=== PATIENT | female | born 1985 | race African-American/Black ===

== ENCOUNTER 2016-11-11 19:07 | Emergency (ER) | payer MEDICAID, OTHER ==
[~2016-11-11] VITALS: Ht 154.9 cm; Wt 68.0 kg
[2016-11-11 19:15] VITALS: BP 139/77
== END 2016-11-11 22:00 | disposition home or self-care (01) ==
LOC: ER 19:14
DX: R51 Headache (principal); M79.1 Myalgia; V49.9XXA Car occupant (driver) (passenger) injured in unspecified traffic accident, initial encounter; Y93.89 Activity, other specified; Y92.89 Other specified places as the place of occurrence of the external cause; Y99.8 Other external cause status
CPT/HCPCS: 70450; 81025

== ENCOUNTER 2017-10-30 13:32 | Emergency (ER) | payer OTHER ==
[~2017-10-30] VITALS: Ht 154.9 cm; Wt 72.6 kg
[2017-10-30 15:30] LABS: Basophils # (auto) 0 uL; Basophils % (auto) 0.3 % (0.0-2.0); Eosinophils # (auto) 0 uL; Eosinophils % (auto) 0.1 % (0.0-7.0); Hematocrit 42.9 % (36.0-46.0); Lymphocytes # (auto) 2.3 uL; Lymphocytes % (auto) 13.7 % (10.0-50.0); Mean Corpuscular Hemoglobin 31.3 pg (28.0-32.0); Mean Corpuscular Volume 89.2 fL (80.0-100.0); Monocytes # (auto) 0.9 uL; Monocytes % (auto) 5.6 % (0.0-12.0); Neutrophils # (auto) 13.6 uL; Neutrophils % (auto) 80.3 % (37.0-80.0); Nucleated Red Blood Cells % 0.1 %; Platelet Count (auto) 301 10^3/uL (140-450); Red Blood Cells 4.81 10^6/uL (4.0-5.20); Red Cell Distribution Width 12.5 % (11.8-14.3)
[2017-10-30 15:48] LABS: Albumin 4.1 g/dL (3.4-5.0); BUN/Creatinine Ratio 11.5; Bilirubin, Total 0.5 mg/dL (0.2-1.0); Potassium 3.5 mmol/L (3.5-5.1); Total Protein 8.3 g/dL (6.4-8.2)
[2017-10-30 18:57] LABS: Urine Bacteria NONE SEEN /hpf (None Seen); Urine Blood Negative /uL (Negative); Urine Mucus FEW (None Seen); Urine Specific Gravity 1.038 (1.001-1.035); Urine WBC 4 /hpf (0 - 5)
[2017-10-30] MEDS ORDERED: SODIUM CHLORIDE 0.9% 1,000 ML IV ONE ×3 (19:00→22:15)
[2017-10-30 19:11] LABS: Amphetamine Screen, Urine NEGATIVE (NEGATIVE); Barbiturate Scree,Urine NEGATIVE (NEGATIVE); Benzodiazephine Screen, Urine NEGATIVE (NEGATIVE); Cannabinoid Screen, Urine POSITIVE (NEGATIVE); Cocaine Screen, Urine NEGATIVE (NEGATIVE); Opiate Scree,Urine NEGATIVE (NEGATIVE); Phencyclidine Screen, Urine NEGATIVE (NEGATIVE)
[2017-10-30] MEDS ORDERED: PROMETHAZINE HCL 25 MG/ML 1ML IV ONE (20:30)
[2017-10-30 23:59] VITALS: BP 149/68
== END 2017-10-31 00:19 | disposition home or self-care (01) ==
LOC: ER 13:41
DX: O21.0 Mild hyperemesis gravidarum (principal); O26.891 Other specified pregnancy related conditions, first trimester; M54.9 Dorsalgia, unspecified; E86.0 Dehydration; R00.1 Bradycardia, unspecified; F19.10 Other psychoactive substance abuse, uncomplicated; Z3A.01 Less than 8 weeks gestation of pregnancy
CPT/HCPCS: 36415; 76801; 80053; 80307; 81001; 82962; 84702; 85025; 93005; 96361; 96374; 99285; J2550; J7030; 76817

== ENCOUNTER 2019-04-13 16:35 | Emergency (ER) | payer OTHER ==
[~2019-04-13] VITALS: Ht 162.6 cm; Wt 72.6 kg
[2019-04-13 17:08] VITALS: BP 124/69
== END 2019-04-13 20:01 | disposition home or self-care (01) ==
LOC: ER 16:43
DX: S43.402A Unspecified sprain of left shoulder joint, initial encounter (principal); X50.0XXA Overexertion from strenuous movement or load, initial encounter; Y93.89 Activity, other specified; Y92.59 Other trade areas as the place of occurrence of the external cause; Y99.8 Other external cause status
CPT/HCPCS: 73030

== ENCOUNTER 2019-04-21 15:37 | Emergency (ER) | payer OTHER ==
[~2019-04-21] VITALS: Ht 154.9 cm; Wt 72.6 kg
[2019-04-21 16:30] VITALS: BP 105/51
[2019-04-21] MEDS ORDERED: IBUPROFEN 600 MG TAB PO ONE (16:45)
== END 2019-04-21 17:28 | disposition home or self-care (01) ==
LOC: ER 15:37
DX: S46.912A Strain of unspecified muscle, fascia and tendon at shoulder and upper arm level, left arm, initial encounter (principal); Z98.51 Tubal ligation status; X50.0XXA Overexertion from strenuous movement or load, initial encounter; Y93.89 Activity, other specified; Y92.89 Other specified places as the place of occurrence of the external cause; Y99.8 Other external cause status
CPT/HCPCS: 73030

== ENCOUNTER 2022-02-05 23:02 | Emergency (ER) | payer OTHER ==
[~2022-02-05] VITALS: Ht 162.6 cm; Wt 81.2 kg
[2022-02-06] MEDS ORDERED: AMOX875T3 PO (00:11)
[2022-02-06] MEDS ORDERED: AMOX-277 PO (00:13)
[2022-02-06 00:27] VITALS: BP 116/60
== END 2022-02-06 00:51 | disposition home or self-care (01) ==
LOC: ER 23:02
DX: K04.7 Periapical abscess without sinus (principal); Z98.51 Tubal ligation status

== ENCOUNTER 2022-06-21 08:30 | Inpatient (IN) | payer OTHER ==
[~2022-06-21] VITALS: Ht 154.9 cm; Wt 92.5 kg
[~2022-06-21 08:30] MED LIST: AMOX-277 PO
[2022-06-21 09:19] LABS: Basophils # (auto) 0 10 ^3/uL (0-0.2); Basophils % (auto) 0.7 % (0.0-2.0); Eosinophils # (auto) 0.1 10 ^3/uL (0-0.8); Eosinophils % (auto) 1.9 % (0.0-7.0); Hemoglobin 13.5 g/dL (12.2-16.2); Lymphocytes # (auto) 2.1 10 ^3/uL (0.4-5.4); Lymphocytes % (auto) 31.1 % (10.0-50.0); Mean Corpuscular Hemoglobin 31.2 pg (28.0-32.0); Mean Corpuscular Hgb Conc. 33.7 g/dL (32.0-36.0); Mean Corpuscular Volume 92.5 fL (80.0-100.0); Monocytes # (auto) 0.5 10 ^3/uL (0-1.3); Neutrophils # (auto) 4.1 10 ^3/uL (1.6-8.6); Neutrophils % (auto) 59.3 % (37.0-80.0); Nucleated Red Blood Cells % 0.1 %; Red Blood Cells 4.32 10^6/uL (4.0-5.20); White Blood Cell 6.9 10^3/uL (4.4-10.8)
[2022-06-21 09:35] LABS: Albumin 3.4 g/dL (3.4-5.0); Calcium 8.6 mg/dL (8.5-10.1); Potassium 4.1 mmol/L (3.5-5.1)
[2022-06-21 09:38] LABS: BUN/Creatinine Ratio 17.6 (10.0-20.0); Bilirubin, Total 0.4 mg/dL (0.2-1.0); Total Protein 6.6 g/dL (6.4-8.2)
[2022-06-21 10:17] LABS: Partial Thromboplastin Time 26.1 sec (24.6-33.4)
[2022-06-21] MEDS ORDERED: ACETAMINOPHEN 325 MG TAB PO ONE (11:45)
[2022-06-21] MEDS ORDERED: ACETAMINOPHEN 500 MG TAB PO ONE (12:15)
[2022-06-21 12:57] LABS: Urine Bacteria NONE SEEN /hpf (None Seen); Urine Blood Negative /uL (Negative); Urine Specific Gravity 1.024 (1.001-1.035); Urine WBC 3 /hpf (0 - 5)
[2022-06-21 13:00] LABS: Amphetamine Screen, Urine NEGATIVE (NEGATIVE); Barbiturate Scree,Urine NEGATIVE (NEGATIVE); Benzodiazephine Screen, Urine NEGATIVE (NEGATIVE); Cannabinoid Screen, Urine POSITIVE (NEGATIVE); Cocaine Screen, Urine NEGATIVE (NEGATIVE)
[2022-06-21 13:08] LABS: Opiate Scree,Urine NEGATIVE (NEGATIVE); Phencyclidine Screen, Urine NEGATIVE (NEGATIVE)
[2022-06-21] MEDS ORDERED: MECLIZINE HCL 25 MG TAB PO ONE ×2 (15:00→22:15)
[2022-06-21] MEDS ORDERED: NITROGLYCERIN 0.4 MG SL TAB SL PRN (16:45)
[2022-06-21] MEDS ORDERED: MORPHINE SULFATE INJ 2 MG/ml SYRG IV PRN (16:45)
[2022-06-21] MEDS ORDERED: ONDANSETRON HCL 4 MG/2 ML VIAL IV PRN (16:45)
[2022-06-21] MEDS ORDERED: DOCUSATE SOD 100 MG CAP PO PRN (16:45)
[2022-06-21] MEDS: HYDROcodone-ACET 5/325MG TAB PO PRN (18:41)
[2022-06-21] MEDS ORDERED: KETOROLAC TROMETH 30 MG/ML 1ML VIAL IV ONE (22:15)
[2022-06-21] MEDS: SODIUM CHLOR 0.9% PF (SALINE LOCK) 10ML VIAL/SYR IV SCH (22:28)
[2022-06-21] MEDS ORDERED: PROCHLORPERAZINE EDISYLATE 5 MG/ML 2ML VIAL IV ONE (23:30)
[2022-06-22] MEDS: SODIUM CHLOR 0.9% PF (SALINE LOCK) 10ML VIAL/SYR IV SCH ×3 (06:19→21:13)
[2022-06-22 06:21] LABS: Basophils # (auto) 0 10 ^3/uL (0-0.2); Basophils % (auto) 0.3 % (0.0-2.0); Eosinophils # (auto) 0.1 10 ^3/uL (0-0.8); Eosinophils % (auto) 0.7 % (0.0-7.0); Hemoglobin 13.4 g/dL (12.2-16.2); Lymphocytes % (auto) 17.5 % (10.0-50.0); Mean Corpuscular Hemoglobin 31.9 pg (28.0-32.0); Mean Corpuscular Hgb Conc. 34.5 g/dL (32.0-36.0); Mean Corpuscular Volume 92.5 fL (80.0-100.0); Monocytes # (auto) 0.5 10 ^3/uL (0-1.3); Neutrophils # (auto) 8.8 10 ^3/uL (1.6-8.6); Neutrophils % (auto) 77.5 % (37.0-80.0); Red Blood Cells 4.21 10^6/uL (4.0-5.20); Red Cell Distribution Width 12.7 % (11.8-14.3); White Blood Cell 11.3 10^3/uL (4.4-10.8)
[2022-06-22 06:40] LABS: Potassium 4.2 mmol/L (3.5-5.1)
[2022-06-22 07:06] LABS: Albumin 3.4 g/dL (3.4-5.0); BUN/Creatinine Ratio 20.3 (10.0-20.0); Bilirubin, Total 0.5 mg/dL (0.2-1.0); Calcium 8.9 mg/dL (8.5-10.1); Total Protein 6.6 g/dL (6.4-8.2)
[2022-06-22] MEDS: PANTOPRAZOLE 40 MG/10 ML VIAL INJ IV SCH (10:39)
[2022-06-22 16:27] VITALS: BP 100/77
[2022-06-22] MEDS: HYDROcodone-ACET 5/325MG TAB PO PRN (20:10)
[2022-06-22 20:12] VITALS: BP 100/77
[2022-06-22 22:00] VITALS: BP 111/76
[2022-06-23 05:00] VITALS: BP 89/61
[2022-06-23] MEDS: SODIUM CHLOR 0.9% PF (SALINE LOCK) 10ML VIAL/SYR IV SCH ×3 (05:00→22:05)
[2022-06-23 08:00] VITALS: BP 134/74
[2022-06-23 09:17] VITALS: BP 134/74
[2022-06-23] MEDS: PANTOPRAZOLE 40 MG/10 ML VIAL INJ IV SCH (10:22)
[2022-06-23 12:30] VITALS: BP 136/89
[2022-06-23] MEDS: ACETAMINOPHEN 325 MG TAB PO PRN (12:37)
[2022-06-23] MEDS: HYDROcodone-ACET 5/325MG TAB PO PRN ×2 (16:15→22:42)
[2022-06-23 17:00] VITALS: BP 133/81
[2022-06-23 22:00] VITALS: BP 121/93
[2022-06-24 05:00] VITALS: BP 102/51
[2022-06-24] MEDS: SODIUM CHLOR 0.9% PF (SALINE LOCK) 10ML VIAL/SYR IV SCH ×3 (05:36→22:00)
[2022-06-24 08:49] VITALS: BP 106/60
[2022-06-24] MEDS: PANTOPRAZOLE 40 MG/10 ML VIAL INJ IV SCH (09:21)
[2022-06-24] MEDS: ACETAMINOPHEN 325 MG TAB PO PRN (09:26)
[2022-06-24 13:00] VITALS: BP 125/101
[2022-06-24] MEDS: HYDROcodone-ACET 5/325MG TAB PO PRN ×2 (14:05→23:30)
[2022-06-24 17:00] VITALS: BP 129/83
[2022-06-24 22:00] VITALS: BP 132/94
[2022-06-25] VITALS (10 sets, daily range): BP systolic 95–126; BP diastolic 48–83
[2022-06-25] MEDS: SODIUM CHLOR 0.9% PF (SALINE LOCK) 10ML VIAL/SYR IV SCH ×3 (05:43→21:23)
[2022-06-25] MEDS ORDERED: VANCOMYCIN 1GM/250ML 250 ML IV ONE (08:15)
[2022-06-25] MEDS ORDERED: LIDOCAINE 2%HCL (LOCAL ANESTH.) INJ 10ml MDV ONE (08:45)
[2022-06-25] MEDS ORDERED: MIDAZOLAM HCL 2MG/2ML 2ml VIAL (1mg/ml) ONE (08:45)
[2022-06-25] MEDS ORDERED: fentaNYL CITRATE 100 MCG/2 ML VL ONE (08:45)
[2022-06-25] MEDS ORDERED: VANCOMYCIN HCL 1000 MG VL ONE (08:45)
[2022-06-25] MEDS: PANTOPRAZOLE 40 MG/10 ML VIAL INJ IV SCH (11:41)
[2022-06-25] MEDS: HYDROcodone-ACET 5/325MG TAB PO PRN ×2 (12:02→17:39)
[2022-06-25] MEDS ORDERED: TEMAZEPAM 15 MG CAP PO PRN (20:45)
[2022-06-25] MEDS: DOXYCYCLINE 100 MG TAB/CAP PO SCH (21:11)
[2022-06-26] VITALS (9 sets, daily range): BP systolic 93–126; BP diastolic 46–85
[2022-06-26] MEDS: HYDROcodone-ACET 5/325MG TAB PO PRN ×2 (04:55→08:38)
[2022-06-26] MEDS: SODIUM CHLOR 0.9% PF (SALINE LOCK) 10ML VIAL/SYR IV SCH ×3 (10:00→21:54)
[2022-06-26] MEDS: PANTOPRAZOLE 40 MG/10 ML VIAL INJ IV SCH (10:03)
[2022-06-26] MEDS: DOXYCYCLINE 100 MG TAB/CAP PO SCH ×2 (11:00→21:55)
[2022-06-26] MEDS ORDERED: LIDOCAINE 2%HCL (LOCAL ANESTH.) INJ 10ml MDV ONE (15:10)
[2022-06-26] MEDS ORDERED: MIDAZOLAM HCL 2MG/2ML 2ml VIAL (1mg/ml) ONE (15:15)
[2022-06-26] MEDS ORDERED: VANCOMYCIN 1GM/250ML 250 ML IV ONE (15:16)
[2022-06-26] MEDS ORDERED: fentaNYL CITRATE 100 MCG/2 ML VL ONE (15:19)
[2022-06-26] MEDS ORDERED: VANCOMYCIN HCL 1000 MG VL ONE (15:21)
[2022-06-26] MEDS: OXYCODONE W/ ACETAMINOPHEN 5/325MG TABLET PO PRN (17:54)
[2022-06-26] MEDS: MORPHINE SULFATE INJ 2 MG/ml SYRG IV PRN (21:55)
[2022-06-27] MEDS: MORPHINE SULFATE INJ 2 MG/ml SYRG IV PRN ×2 (04:39→11:56)
[2022-06-27 04:47] VITALS: BP 118/82
[2022-06-27] MEDS: SODIUM CHLOR 0.9% PF (SALINE LOCK) 10ML VIAL/SYR IV SCH (05:15)
[2022-06-27 06:30] LABS: Basophils # (auto) 0.1 10 ^3/uL (0-0.2); Basophils % (auto) 0.8 % (0.0-2.0); Eosinophils # (auto) 0.2 10 ^3/uL (0-0.8); Eosinophils % (auto) 1.6 % (0.0-7.0); Hematocrit 40.1 % (36.0-46.0); Hemoglobin 13.7 g/dL (12.2-16.2); Lymphocytes # (auto) 1.8 10 ^3/uL (0.4-5.4); Lymphocytes % (auto) 19.3 % (10.0-50.0); Mean Corpuscular Hemoglobin 31.4 pg (28.0-32.0); Mean Corpuscular Hgb Conc. 34.2 g/dL (32.0-36.0); Monocytes # (auto) 0.8 10 ^3/uL (0-1.3); Monocytes % (auto) 8.4 % (0.0-12.0); Neutrophils # (auto) 6.7 10 ^3/uL (1.6-8.6); Neutrophils % (auto) 69.9 % (37.0-80.0); Nucleated Red Blood Cells % 0.3 %; Red Blood Cells 4.36 10^6/uL (4.0-5.20); Red Cell Distribution Width 12.5 % (11.8-14.3); White Blood Cell 9.5 10^3/uL (4.4-10.8)
[2022-06-27 06:45] LABS: BUN/Creatinine Ratio 13.6 (10.0-20.0); Calcium 8.9 mg/dL (8.5-10.1); Magnesium 1.9 mg/dL (1.6-2.6); Potassium 3.7 mmol/L (3.5-5.1)
[2022-06-27] MEDS: OXYCODONE W/ ACETAMINOPHEN 5/325MG TABLET PO PRN (08:06)
[2022-06-27] MEDS: PANTOPRAZOLE 40 MG/10 ML VIAL INJ IV SCH (09:04)
[2022-06-27] MEDS: DOXYCYCLINE 100 MG TAB/CAP PO SCH (09:04)
[2022-06-27] MEDS ORDERED: DOXY-332 PO (11:59)
[2022-06-27] MEDS ORDERED: PERCOT PO (11:59)
[2022-06-27 12:38] VITALS: BP 106/65
== END 2022-06-27 13:47 | disposition home or self-care (01) | DRG 171 ==
LOC: ER 08:30 → TELE 16:54 → TELE-WESTW 06-22 15:47 → UNDODISIN 06-23 15:20
PROVIDERS: ADMIT Nurse Practitioner Family; ATTEND Nurse Practitioner Acute Care
PROC: 0JH606Z Insertion of Pacemaker, Dual Chamber into Chest Subcutaneous Tissue and Fascia, Open Approach (ICD-10-PCS; 2022-06-25)
PROC: 02H63JZ Insertion of Pacemaker Lead into Right Atrium, Percutaneous Approach (ICD-10-PCS; 2022-06-25)
PROC: 02HK3JZ Insertion of Pacemaker Lead into Right Ventricle, Percutaneous Approach (ICD-10-PCS; 2022-06-25)
PROC: 0JWT3PZ Revision of Cardiac Rhythm Related Device in Trunk Subcutaneous Tissue and Fascia, Percutaneous Approach (ICD-10-PCS; principal; 2022-06-26)
PROC: 02WA0MZ Revision of Cardiac Lead in Heart, Open Approach (ICD-10-PCS; 2022-06-26)
DX: T82.120A Displacement of cardiac electrode, initial encounter (principal); I49.5 Sick sinus syndrome; E66.9 Obesity, unspecified; I34.1 Nonrheumatic mitral (valve) prolapse; Y83.8 Other surgical procedures as the cause of abnormal reaction of the patient, or of later complication, without mention of misadventure at the time of the procedure; R55 Syncope and collapse; Z83.3 Family history of diabetes mellitus; Z82.49 Family history of ischemic heart disease and other diseases of the circulatory system; Z68.38 Body mass index [BMI] 38.0-38.9, adult; Y92.89 Other specified places as the place of occurrence of the external cause
CPT/HCPCS: 33208; 33218; 36415; 70450; 71045; 80048; 80053; 80307; 81001; 81025; 82962; 83735; 84443; 84484; 85025; 85379; 85610; 85730; 86850; 86900; 86901; 93005; 93306; 99152; 99153; C9113; G0378; J1885; J2001; J2250; J2405

== ENCOUNTER 2022-06-30 12:09 | Inpatient (IN) | payer OTHER ==
[~2022-06-30] VITALS: Ht 154.9 cm; Wt 92.6 kg
[~2022-06-30 12:09] MED LIST changes: +DOXY-332 PO; +PERCOT PO
[2022-06-30 12:54] LABS: Basophils # (auto) 0 10 ^3/uL (0-0.2); Basophils % (auto) 0.5 % (0.0-2.0); Eosinophils # (auto) 0.1 10 ^3/uL (0-0.8); Eosinophils % (auto) 1.8 % (0.0-7.0); Hematocrit 38.9 % (36.0-46.0); Hemoglobin 13.2 g/dL (12.2-16.2); Lymphocytes # (auto) 2.3 10 ^3/uL (0.4-5.4); Lymphocytes % (auto) 27.9 % (10.0-50.0); Mean Corpuscular Hemoglobin 31.4 pg (28.0-32.0); Mean Corpuscular Hgb Conc. 33.9 g/dL (32.0-36.0); Mean Corpuscular Volume 92.7 fL (80.0-100.0); Monocytes # (auto) 0.6 10 ^3/uL (0-1.3); Monocytes % (auto) 7.9 % (0.0-12.0); Neutrophils # (auto) 5.1 10 ^3/uL (1.6-8.6); Neutrophils % (auto) 61.9 % (37.0-80.0); Red Blood Cells 4.19 10^6/uL (4.0-5.20); Red Cell Distribution Width 12.6 % (11.8-14.3); White Blood Cell 8.2 10^3/uL (4.4-10.8)
[2022-06-30 13:50] LABS: Albumin 3.4 g/dL (3.4-5.0); Potassium 4.1 mmol/L (3.5-5.1)
[2022-06-30 13:53] LABS: BUN/Creatinine Ratio 17.5 (10.0-20.0); Bilirubin, Total 0.4 mg/dL (0.2-1.0); Total Protein 6.8 g/dL (6.4-8.2)
[2022-06-30] MEDS ORDERED: ACETAMINOPHEN 325 MG TAB PO PRN (19:00)
[2022-06-30] MEDS ORDERED: NITROGLYCERIN 0.4 MG SL TAB SL PRN (19:00)
[2022-06-30 19:19] LABS: Cholesterol 163 mg/dL (< 200)
[2022-06-30 19:22] LABS: HDL Cholesterol 52 mg/dL (40-59); LDL Cholesterol 92 mg/dL (< 100); Triglycerides 82 mg/dL (< 150)
[2022-07-01 05:15] LABS: Basophils # (auto) 0 10 ^3/uL (0-0.2); Basophils % (auto) 0.4 % (0.0-2.0); Eosinophils # (auto) 0.2 10 ^3/uL (0-0.8); Eosinophils % (auto) 1.8 % (0.0-7.0); Hematocrit 40.7 % (36.0-46.0); Hemoglobin 13.6 g/dL (12.2-16.2); Lymphocytes # (auto) 3.3 10 ^3/uL (0.4-5.4); Lymphocytes % (auto) 28.2 % (10.0-50.0); Mean Corpuscular Hemoglobin 31.1 pg (28.0-32.0); Mean Corpuscular Hgb Conc. 33.5 g/dL (32.0-36.0); Mean Corpuscular Volume 92.9 fL (80.0-100.0); Monocytes # (auto) 1.2 10 ^3/uL (0-1.3); Monocytes % (auto) 10.4 % (0.0-12.0); Neutrophils % (auto) 59.2 % (37.0-80.0); Nucleated Red Blood Cells % 0.1 %; Red Blood Cells 4.38 10^6/uL (4.0-5.20); Red Cell Distribution Width 12.4 % (11.8-14.3); White Blood Cell 11.8 10^3/uL (4.4-10.8)
[2022-07-01 05:29] LABS: Albumin 3.4 g/dL (3.4-5.0); Calcium 9.1 mg/dL (8.5-10.1); Potassium 3.8 mmol/L (3.5-5.1)
[2022-07-01 05:33] LABS: BUN/Creatinine Ratio 16.7 (10.0-20.0); Bilirubin, Total 0.2 mg/dL (0.2-1.0); Total Protein 7.6 g/dL (6.4-8.2)
[2022-07-01] MEDS ORDERED: ASPirin 81 mg TAB PO SCH (10:00)
[2022-07-01] MEDS: HYDROcodone-ACET 5/325MG TAB PO PRN (10:42)
[2022-07-01] MEDS: MORPHINE SULFATE INJ 2 MG/ml SYRG IV PRN ×3 (13:57→23:10)
[2022-07-01] MEDS: TEMAZEPAM 15 MG CAP PO PRN (23:09)
[2022-07-02] VITALS (14 sets, daily range): BP systolic 101–147; BP diastolic 47–105
[2022-07-02] MEDS: MORPHINE SULFATE INJ 2 MG/ml SYRG IV PRN ×3 (11:02→23:54)
[2022-07-02] MEDS ORDERED: MIDAZOLAM HCL 2MG/2ML 2ml VIAL (1mg/ml) ONE (13:12)
[2022-07-02] MEDS ORDERED: VANCOMYCIN HCL 1000 MG VL ONE (13:12)
[2022-07-02] MEDS ORDERED: fentaNYL CITRATE 100 MCG/2 ML VL ONE (13:12)
[2022-07-02] MEDS ORDERED: VANCOMYCIN 1GM/250ML 250 ML IV ONE (13:12)
[2022-07-02] MEDS ORDERED: LIDOCAINE 2%HCL (LOCAL ANESTH.) INJ 20ML MDV ONE ×2 (13:13→13:50)
[2022-07-02 13:31] LABS: INR 1.01 (0.9-1.15); Partial Thromboplastin Time 26.5 sec (24.6-33.4)
[2022-07-02] MEDS: HYDROcodone-ACET 5/325MG TAB PO PRN (16:33)
[2022-07-02] MEDS: TEMAZEPAM 15 MG CAP PO PRN (22:18)
[2022-07-03] VITALS (9 sets, daily range): BP systolic 93–145; BP diastolic 54–87
[2022-07-03] MEDS: MORPHINE SULFATE INJ 2 MG/ml SYRG IV PRN ×2 (04:33→11:15)
[2022-07-03] MEDS: HYDROcodone-ACET 5/325MG TAB PO PRN (08:40)
[2022-07-03] MEDS ORDERED: MORPHINE SULFATE INJ 2 MG/ml SYRG IV PRN ×2 (12:15→15:30)
[2022-07-03] MEDS ORDERED: HYDROmorphone HCL 2 MG/ML VL/or syr ONE (14:47)
[2022-07-03] MEDS ORDERED: HYDROmorphone HCL 2 MG/ML VL/or syr IV ONE (15:00)
[2022-07-03] MEDS ORDERED: MORPHINE SULFATE 4 MG/ML SYR/VIAL IV PRN (15:30)
[2022-07-03] MEDS ORDERED: ANGIOMAX 250 MG VIAL IV ONE (16:37)
[2022-07-03] MEDS ORDERED: HEPARIN SODIUM (PORCINE) 5000 UNITS/ML 1ML VIAL ONE (16:37)
[2022-07-03] MEDS ORDERED: fentaNYL CITRATE 100 MCG/2 ML VL ONE (16:37)
[2022-07-03] MEDS ORDERED: MIDAZOLAM HCL 2MG/2ML 2ml VIAL (1mg/ml) ONE ×2 (16:37→17:24)
[2022-07-03] MEDS ORDERED: VERAPAMIL 2.5MG/ML INJ 2ML VIAL IV ONE (16:38)
[2022-07-03] MEDS ORDERED: SODIUM CHL 0.9% 0 ML ONE (16:38)
[2022-07-03] MEDS ORDERED: VANCOMYCIN 1GM/250ML 250 ML IV ONE (16:42)
[2022-07-03] MEDS ORDERED: LIDOCAINE 2%HCL (LOCAL ANESTH.) INJ 20ML MDV ONE (16:44)
[2022-07-03] MEDS ORDERED: VANCOMYCIN HCL 1000 MG VL ONE (16:45)
[2022-07-03] MEDS ORDERED: diphenhdrAMINE HCL 50 MG/1 ML VL ONE (17:23)
[2022-07-03] MEDS: HYDROmorphone HCL 2 MG/ML VL/or syr IV PRN (20:01)
[2022-07-03] MEDS: TEMAZEPAM 15 MG CAP PO PRN (22:16)
[2022-07-04] MEDS: HYDROmorphone HCL 2 MG/ML VL/or syr IV PRN ×3 (00:42→16:58)
[2022-07-04] MEDS: traMADol HCL 50 MG TAB PO PRN ×3 (02:53→19:48)
[2022-07-04 05:00] VITALS: BP 123/77
[2022-07-04] MEDS ORDERED: KETOROLAC TROMETH 30 MG/ML 1ML VIAL IV ONE (06:00)
[2022-07-04] MEDS ORDERED: IOHEXOL 350 MG/ML 100ML IJ ONE (06:08)
[2022-07-04] MEDS ORDERED: IOHEXOL 300 MG/ML 100ML BOTTLE IJ ONE (08:04)
[2022-07-04 08:55] VITALS: BP 126/67
[2022-07-04] MEDS: ALPRAZolam 0.25 MG TAB PO PRN ×2 (11:30→18:53)
[2022-07-04] MEDS ORDERED: DOXY-332 PO (11:43)
[2022-07-04] MEDS ORDERED: PERCOT PO (11:43)
[2022-07-04 13:00] VITALS: BP 135/77
[2022-07-04] MEDS ORDERED: oxyCODONE ER 10 MG TAB PO PRN (13:45)
[2022-07-04] MEDS ORDERED: oxyCODONE HCL 5MG TAB PO PRN (14:00)
[2022-07-04 16:37] VITALS: BP 105/62
[2022-07-04 22:40] VITALS: BP 113/75
[2022-07-05] MEDS: HYDROmorphone HCL 2 MG/ML VL/or syr IV PRN ×2 (00:06→06:05)
[2022-07-05] MEDS: ALPRAZolam 0.25 MG TAB PO PRN (00:06)
[2022-07-05 05:00] VITALS: BP_SYST 116; BP_SYST 136; BP_DIAS 62; BP_DIAS 79
[2022-07-05 08:33] VITALS: BP 130/90
[2022-07-05 09:00] VITALS: BP 110/68
== END 2022-07-05 10:45 | disposition home or self-care (01) | DRG 177 ==
LOC: ER 12:09 → TELE 18:52 → TELE-EAST 07-01 23:35
PROVIDERS: ADMIT Nurse Practitioner Family; ATTEND Internal Medicine
PROC: 02WA3MZ Revision of Cardiac Lead in Heart, Percutaneous Approach (ICD-10-PCS; principal; 2022-07-02)
PROC: 02WA3MZ Revision of Cardiac Lead in Heart, Percutaneous Approach (ICD-10-PCS; 2022-07-03)
DX: T82.897A Other specified complication of cardiac prosthetic devices, implants and grafts, initial encounter (principal); I24.9 Acute ischemic heart disease, unspecified; I49.5 Sick sinus syndrome; I34.1 Nonrheumatic mitral (valve) prolapse; Y83.8 Other surgical procedures as the cause of abnormal reaction of the patient, or of later complication, without mention of misadventure at the time of the procedure; E66.01 Morbid (severe) obesity due to excess calories; Z68.31 Body mass index [BMI] 31.0-31.9, adult; Z83.3 Family history of diabetes mellitus; Z82.49 Family history of ischemic heart disease and other diseases of the circulatory system; Y92.89 Other specified places as the place of occurrence of the external cause
CPT/HCPCS: 33215; 36415; 71045; 71275; 80053; 80061; 83036; 83880; 84484; 85025; 85610; 85730; 86850; 86900; 86901; 87081; 93005; 99152; 99153; G0378; J1885; J2250

== ENCOUNTER 2022-09-19 16:30 | Emergency (ER) | payer OTHER ==
[~2022-09-19 16:30] MED LIST changes: -AMOX-277 PO; +ASPI-325 PO; +ATOR20TA PO; -DOXY-332 PO; +DOXY-448 PO; +ESCI5TAB20 PO; +HYDRX10T PO; +NITR0.4S29 SL
== END 2022-09-23 18:09 | disposition left against medical advice (07) ==
LOC: ER 16:30
DX: M54.2 Cervicalgia (principal); Z53.21 Procedure and treatment not carried out due to patient leaving prior to being seen by health care provider

== ENCOUNTER 2023-05-21 13:54 | Emergency (ER) | payer OTHER ==
[~2023-05-21] VITALS: Ht 154.9 cm; Wt 87.7 kg
[2023-05-21 14:26] VITALS: TEMP 97.6
[2023-05-21 14:28] VITALS: BP 96/80; PULSE 92; RESP 14; O2SAT 98
[2023-05-21] MEDS: KETOROLAC TROMETH 60MG/2ML VIAL IM ONE (17:19)
[2023-05-21] MEDS: DexAMETHasone SOD PHOS 10MG/1ML VIAL INJ IM ONE (17:19)
[2023-05-21] MEDS: cefTRIAXone SOD 500 MG VL IM ONE (17:20)
[2023-05-21] MEDS ORDERED: LIDO2SOL26 MT (17:28)
[2023-05-21] MEDS ORDERED: MELO-335 PO (17:28)
== END 2023-05-21 17:34 | disposition home or self-care (01) ==
LOC: ER 13:54
DX: B34.9 Viral infection, unspecified (principal); Z79.82 Long term (current) use of aspirin; Z79.899 Other long term (current) drug therapy
CPT/HCPCS: 96372; 99284; J0696; J1100; J1885